=== PATIENT | female | born 1935 | race Caucasian/White ===

== ENCOUNTER 2020-02-15 16:35 | Inpatient (IN) ==
[2020-02-15] MEDS ORDERED: *HR* Warfarin 5 MG TABLET PO ONE ×2 (18:26→22:45)
[2020-02-15] MEDS: *HR* Amiodarone 200 MG TABLET PO SCH (22:41)
[2020-02-15] MEDS: OMEGA PO SCH (22:52)
[2020-02-15] MEDS: EPA PO SCH (22:52)
[2020-02-15] MEDS: FISH OIL PO SCH (22:52)
[2020-02-15] MEDS: DHA PO SCH (22:52)
[2020-02-15] MEDS: Cyanocobalamin (B-12) 1,000 MCG TABLET PO SCH (22:53)
[2020-02-15] MEDS: Gabapentin 300 MG CAPSULE PO SCH (22:54)
[2020-02-16 06:08] LABS: Basophils # 0.1 K/mcL (0.0-0.2); Basophils % 0.7 %; Eosinophils # 0.3 K/mcL (0.0-0.6); Eosinophils % 3.3 %; Hematocrit 30.6 % (35.3-44.9); Hemoglobin 8.9 g/dL (11.5-15.4); Immature Granulocytes % 0.4 % (0-4); Lymphocytes # 1.8 K/mcL (0.6-4.6); Lymphocytes % 24.3 %; Mean Corpuscular HGB Conc 29.1 g/dL (31.6-35.5); Mean Corpuscular Hemoglobin 22.7 pg (28.0-33.3); Mean Corpuscular Volume 78.1 fL (83.0-100.0); Mean Platelet Volume 9.2 fL (9.4-12.4); Monocytes # 0.6 K/mcL (0.0-1.3); Monocytes % 8.5 %; Neutrophils # 4.7 K/mcL (1.6-8.9); Platelet Count 443 K/mcL (140-400); Red Blood Count 3.92 M/mcL (3.82-4.97); Red Cell Distribution Width 25.4 % (11.5-14.5); Segmented Neutrophils % 62.8 %; White Blood Count 7.5 K/mcL (4.3-11.1)
[2020-02-16 06:32] LABS: INR 1.5
[2020-02-16 06:34] LABS: BUN/Creatinine Ratio 12 (6-26); Blood Urea Nitrogen 9 mg/dL (8-23); Calcium 8.7 mg/dL (8.6-10.3); Carbon Dioxide 30 mEq/L (23-29); Chloride 99 mEq/L (98-107); Glucose 93 mg/dL (70-105); Osmolality,Calculated 278 (280-300); Potassium 4.8 mEq/L (3.5-5.1); Sodium 135 mEq/L (136-145); eGFR For African Americans > 60 (> 60); eGFR For Non-African Americans > 60 (> 60)
[2020-02-16 06:55] LABS: Anisocytosis 1+ (Not Present)
[2020-02-16] MEDS ORDERED: *HR* Warfarin 7.5 MG TABLET PO SCH (09:00)
[2020-02-16] MEDS: amLODIPine 5 MG TABLET PO SCH (09:12)
[2020-02-16] MEDS: Gabapentin 300 MG CAPSULE PO SCH ×2 (09:12→21:05)
[2020-02-16] MEDS: Cyanocobalamin (B-12) 1,000 MCG TABLET PO SCH ×2 (09:12→21:04)
[2020-02-16] MEDS: Metoprolol XL (24 HR) Succ 25 MG TAB.ER.24H PO SCH (09:12)
[2020-02-16] MEDS: *HR* Amiodarone 200 MG TABLET PO SCH ×2 (09:12→21:05)
[2020-02-16] MEDS: EPA PO SCH ×2 (09:13→21:06)
[2020-02-16] MEDS: DHA PO SCH ×2 (09:13→21:06)
[2020-02-16] MEDS: FISH OIL PO SCH ×2 (09:13→21:06)
[2020-02-16] MEDS: OMEGA PO SCH ×2 (09:13→21:06)
[2020-02-16] MEDS: VIT A PO SCH (09:14)
[2020-02-16] MEDS: CUPRIC OXIDE PO SCH (09:14)
[2020-02-16] MEDS: E AC PO SCH (09:14)
[2020-02-16] MEDS: [UNRECOGNIZED DRUG - OTHER] PO SCH (09:14)
[2020-02-16] MEDS: ZNOX PO SCH (09:14)
[2020-02-16] MEDS: polyethylene glycoL 3350 17 GM POWD.PACK PO SCH (15:28)
[2020-02-16] MEDS ORDERED: Warfarin perPT PO PRN (18:00)
[2020-02-16] MEDS: Sennosides/Docusate Sodium TABLET PO SCH (21:04)
[2020-02-17 05:29] LABS: INR 1.9; Prothrombin Time 21.3 Seconds (9.4-12.1)
[2020-02-17] MEDS ORDERED: 0.9 % Sodium Chloride 500 ML IVC ONE (09:59)
[2020-02-17] MEDS: Cyanocobalamin (B-12) 1,000 MCG TABLET PO SCH ×2 (10:02→21:47)
[2020-02-17] MEDS: Gabapentin 300 MG CAPSULE PO SCH ×2 (10:03→21:46)
[2020-02-17] MEDS: Sennosides/Docusate Sodium TABLET PO SCH ×2 (10:03→21:46)
[2020-02-17] MEDS: amLODIPine 5 MG TABLET PO SCH (10:03)
[2020-02-17] MEDS: polyethylene glycoL 3350 17 GM POWD.PACK PO SCH (10:03)
[2020-02-17] MEDS: *HR* Amiodarone 200 MG TABLET PO SCH ×2 (10:03→21:47)
[2020-02-17] MEDS: Metoprolol XL (24 HR) Succ 25 MG TAB.ER.24H PO SCH (10:04)
[2020-02-17] MEDS: VIT A PO SCH (10:06)
[2020-02-17] MEDS: [UNRECOGNIZED DRUG - OTHER] PO SCH (10:06)
[2020-02-17] MEDS: ZNOX PO SCH (10:06)
[2020-02-17] MEDS: E AC PO SCH (10:06)
[2020-02-17] MEDS: CUPRIC OXIDE PO SCH (10:06)
[2020-02-17] MEDS: OMEGA PO SCH (10:07)
[2020-02-17] MEDS: DHA PO SCH (10:07)
[2020-02-17] MEDS: FISH OIL PO SCH (10:07)
[2020-02-17] MEDS: EPA PO SCH (10:07)
[2020-02-17] MEDS: 0.9 % Sodium Chloride 1,000 ML IVC SCH (17:19)
[2020-02-17] MEDS ORDERED: Warfarin 5 MG, Warfarin 2.5 MG PO ONE (18:00)
[2020-02-17] MEDS: *HR* HYDROcodone/Acet 10/325 mg TABLET PO PRN (21:47)
[2020-02-18] MEDS: FISH OIL PO SCH ×3 (01:29→22:12)
[2020-02-18] MEDS: EPA PO SCH ×3 (01:29→22:12)
[2020-02-18] MEDS: OMEGA PO SCH ×3 (01:29→22:12)
[2020-02-18] MEDS: DHA PO SCH ×3 (01:29→22:12)
[2020-02-18] MEDS: 0.9 % Sodium Chloride 1,000 ML IVC SCH ×3 (03:24→22:17)
[2020-02-18 05:52] LABS: INR 2.3; Prothrombin Time 26.4 Seconds (9.4-12.1)
[2020-02-18] MEDS: Metoprolol XL (24 HR) Succ 25 MG TAB.ER.24H PO SCH (09:01)
[2020-02-18] MEDS: Sennosides/Docusate Sodium TABLET PO SCH ×2 (09:01→22:10)
[2020-02-18] MEDS: polyethylene glycoL 3350 17 GM POWD.PACK PO SCH (09:01)
[2020-02-18] MEDS: Cyanocobalamin (B-12) 1,000 MCG TABLET PO SCH ×2 (09:01→22:10)
[2020-02-18] MEDS: Gabapentin 300 MG CAPSULE PO SCH ×2 (09:01→22:12)
[2020-02-18] MEDS: *HR* Amiodarone 200 MG TABLET PO SCH ×2 (09:01→22:10)
[2020-02-18] MEDS: VIT A PO SCH (09:02)
[2020-02-18] MEDS: E AC PO SCH (09:02)
[2020-02-18] MEDS: [UNRECOGNIZED DRUG - OTHER] PO SCH (09:02)
[2020-02-18] MEDS: ZNOX PO SCH (09:02)
[2020-02-18] MEDS: *HR* HYDROcodone/Acet 10/325 mg TABLET PO PRN ×2 (09:02→22:11)
[2020-02-18] MEDS: CUPRIC OXIDE PO SCH (09:02)
[2020-02-18] MEDS ORDERED: Bisacodyl 10 MG RECTAL SUPPOSITORY RC ONE (13:15)
[2020-02-18] MEDS ORDERED: *HR* Warfarin 5 MG TABLET PO ONE (18:00)
[2020-02-18] MEDS ORDERED: 0.9 % Sodium Chloride 1,000 ML IVC SCH (23:30)
[2020-02-19 07:34] LABS: Prothrombin Time 31.3 Seconds (9.4-12.1)
[2020-02-19 07:35] LABS: INR 2.8
[2020-02-19] MEDS ORDERED: Furosemide 20 MG/2 ML VIAL IVP ONE (08:57)
[2020-02-19] MEDS: Sennosides/Docusate Sodium TABLET PO SCH ×2 (09:28→20:23)
[2020-02-19] MEDS: Cyanocobalamin (B-12) 1,000 MCG TABLET PO SCH ×2 (09:29→20:21)
[2020-02-19] MEDS: Metoprolol XL (24 HR) Succ 25 MG TAB.ER.24H PO SCH (09:29)
[2020-02-19] MEDS: polyethylene glycoL 3350 17 GM POWD.PACK PO SCH (09:29)
[2020-02-19] MEDS: Gabapentin 300 MG CAPSULE PO SCH ×2 (09:29→20:23)
[2020-02-19] MEDS: *HR* Amiodarone 200 MG TABLET PO SCH ×2 (09:30→20:20)
[2020-02-19] MEDS: OMEGA PO SCH ×2 (09:32→20:25)
[2020-02-19] MEDS: VIT A PO SCH (09:32)
[2020-02-19] MEDS: CUPRIC OXIDE PO SCH (09:32)
[2020-02-19] MEDS: E AC PO SCH (09:32)
[2020-02-19] MEDS: DHA PO SCH ×2 (09:32→20:25)
[2020-02-19] MEDS: FISH OIL PO SCH ×2 (09:32→20:25)
[2020-02-19] MEDS: [UNRECOGNIZED DRUG - OTHER] PO SCH (09:32)
[2020-02-19] MEDS: EPA PO SCH ×2 (09:32→20:25)
[2020-02-19] MEDS: ZNOX PO SCH (09:32)
[2020-02-19 09:34] LABS: Basophils % 0.5 %; Eosinophils # 0.3 K/mcL (0.0-0.6); Eosinophils % 3.8 %; Hematocrit 29.7 % (35.3-44.9); Hemoglobin 8.6 g/dL (11.5-15.4); Immature Granulocytes % 0.4 % (0-4); Lymphocytes % 25.3 %; Mean Corpuscular Hemoglobin 22.9 pg (28.0-33.3); Mean Corpuscular Volume 79.2 fL (83.0-100.0); Mean Platelet Volume 8.8 fL (9.4-12.4); Monocytes # 0.7 K/mcL (0.0-1.3); Monocytes % 8.7 %; Neutrophils # 4.8 K/mcL (1.6-8.9); Platelet Count 475 K/mcL (140-400); Red Blood Count 3.75 M/mcL (3.82-4.97); Red Cell Distribution Width 25.1 % (11.5-14.5); Segmented Neutrophils % 61.3 %; White Blood Count 7.8 K/mcL (4.3-11.1)
[2020-02-19] MEDS: *HR* HYDROcodone/Acet 10/325 mg TABLET PO PRN ×2 (09:37→20:31)
[2020-02-19 09:48] LABS: BUN/Creatinine Ratio 10 (6-26); Blood Urea Nitrogen 9 mg/dL (8-23); Calcium 8.5 mg/dL (8.6-10.3); Carbon Dioxide 27 mEq/L (23-29); Chloride 102 mEq/L (98-107); Glucose 121 mg/dL (70-105); Osmolality,Calculated 282 (280-300); Potassium 4.6 mEq/L (3.5-5.1); Sodium 136 mEq/L (136-145); eGFR For African Americans > 60 (> 60); eGFR For Non-African Americans > 60 (> 60)
[2020-02-19] MEDS ORDERED: *HR* Warfarin 3 MG TABLET PO ONE (18:00)
[2020-02-20 08:27] LABS: INR 2.6; Prothrombin Time 29.3 Seconds (9.4-12.1)
[2020-02-20] MEDS: Sennosides/Docusate Sodium TABLET PO SCH ×2 (09:29→21:07)
[2020-02-20] MEDS: FISH OIL PO SCH ×2 (09:30→21:05)
[2020-02-20] MEDS: *HR* Amiodarone 200 MG TABLET PO SCH ×2 (09:30→21:07)
[2020-02-20] MEDS: Gabapentin 300 MG CAPSULE PO SCH ×2 (09:30→21:07)
[2020-02-20] MEDS: Metoprolol XL (24 HR) Succ 25 MG TAB.ER.24H PO SCH (09:30)
[2020-02-20] MEDS: Cyanocobalamin (B-12) 1,000 MCG TABLET PO SCH ×2 (09:30→21:06)
[2020-02-20] MEDS: OMEGA PO SCH ×2 (09:30→21:05)
[2020-02-20] MEDS: EPA PO SCH ×2 (09:30→21:05)
[2020-02-20] MEDS: DHA PO SCH ×2 (09:30→21:05)
[2020-02-20] MEDS: polyethylene glycoL 3350 17 GM POWD.PACK PO SCH (09:30)
[2020-02-20] MEDS: VIT A PO SCH (09:31)
[2020-02-20] MEDS: ZNOX PO SCH (09:31)
[2020-02-20] MEDS: E AC PO SCH (09:31)
[2020-02-20] MEDS: CUPRIC OXIDE PO SCH (09:31)
[2020-02-20] MEDS: [UNRECOGNIZED DRUG - OTHER] PO SCH (09:31)
[2020-02-20] MEDS ORDERED: *HR* Warfarin 3 MG TABLET PO ONE (18:00)
[2020-02-20] MEDS: *HR* HYDROcodone/Acet 10/325 mg TABLET PO PRN (21:06)
[2020-02-21 07:42] LABS: Hematocrit 27.1 % (35.3-44.9); Hemoglobin 8.1 g/dL (11.5-15.4); Mean Corpuscular HGB Conc 29.9 g/dL (31.6-35.5); Mean Corpuscular Hemoglobin 23.2 pg (28.0-33.3); Mean Corpuscular Volume 77.7 fL (83.0-100.0); Mean Platelet Volume 8.7 fL (9.4-12.4); Platelet Count 499 K/mcL (140-400); Red Blood Count 3.49 M/mcL (3.82-4.97); Red Cell Distribution Width 24.5 % (11.5-14.5); White Blood Count 7.6 K/mcL (4.3-11.1)
[2020-02-21 07:57] LABS: BUN/Creatinine Ratio 8 (6-26); Blood Urea Nitrogen 6 mg/dL (8-23); Calcium 8.4 mg/dL (8.6-10.3); Carbon Dioxide 30 mEq/L (23-29); Chloride 101 mEq/L (98-107); Glucose 87 mg/dL (70-105); Osmolality,Calculated 279 (280-300); Potassium 4.5 mEq/L (3.5-5.1); Sodium 136 mEq/L (136-145); eGFR For African Americans > 60 (> 60); eGFR For Non-African Americans > 60 (> 60)
[2020-02-21 08:55] LABS: Prothrombin Time 35.8 Seconds (9.4-12.1)
[2020-02-21] MEDS: polyethylene glycoL 3350 17 GM POWD.PACK PO SCH (08:55)
[2020-02-21] MEDS: Cyanocobalamin (B-12) 1,000 MCG TABLET PO SCH ×2 (08:55→21:51)
[2020-02-21] MEDS: *HR* Amiodarone 200 MG TABLET PO SCH ×2 (08:55→21:51)
[2020-02-21] MEDS: *HR* HYDROcodone/Acet 10/325 mg TABLET PO PRN ×2 (08:55→21:51)
[2020-02-21 08:56] LABS: INR 3.1
[2020-02-21] MEDS: Gabapentin 300 MG CAPSULE PO SCH ×2 (08:56→21:50)
[2020-02-21] MEDS: Metoprolol XL (24 HR) Succ 25 MG TAB.ER.24H PO SCH (08:56)
[2020-02-21] MEDS: OMEGA PO SCH ×2 (08:56→22:28)
[2020-02-21] MEDS: DHA PO SCH ×2 (08:56→22:28)
[2020-02-21] MEDS: CUPRIC OXIDE PO SCH (08:56)
[2020-02-21] MEDS: VIT A PO SCH (08:56)
[2020-02-21] MEDS: E AC PO SCH (08:56)
[2020-02-21] MEDS: FISH OIL PO SCH ×2 (08:56→22:28)
[2020-02-21] MEDS: [UNRECOGNIZED DRUG - OTHER] PO SCH (08:56)
[2020-02-21] MEDS: EPA PO SCH ×2 (08:56→22:28)
[2020-02-21] MEDS: ZNOX PO SCH (08:56)
[2020-02-21] MEDS: Sennosides/Docusate Sodium TABLET PO SCH ×2 (08:56→21:51)
[2020-02-21] MEDS ORDERED: *HR* Warfarin 1 MG TABLET PO ONE (18:00)
[2020-02-22 06:07] LABS: INR 2.8; Prothrombin Time 31.6 Seconds (9.4-12.1)
[2020-02-22] MEDS: Sennosides/Docusate Sodium TABLET PO SCH ×2 (09:25→20:43)
[2020-02-22] MEDS: Cyanocobalamin (B-12) 1,000 MCG TABLET PO SCH ×2 (09:25→20:44)
[2020-02-22] MEDS: Gabapentin 300 MG CAPSULE PO SCH ×2 (09:26→20:44)
[2020-02-22] MEDS: FISH OIL PO SCH ×2 (09:26→20:45)
[2020-02-22] MEDS: EPA PO SCH ×2 (09:26→20:45)
[2020-02-22] MEDS: CUPRIC OXIDE PO SCH (09:26)
[2020-02-22] MEDS: [UNRECOGNIZED DRUG - OTHER] PO SCH (09:26)
[2020-02-22] MEDS: ZNOX PO SCH (09:26)
[2020-02-22] MEDS: *HR* Amiodarone 200 MG TABLET PO SCH ×2 (09:26→20:44)
[2020-02-22] MEDS: DHA PO SCH ×2 (09:26→20:45)
[2020-02-22] MEDS: Metoprolol XL (24 HR) Succ 25 MG TAB.ER.24H PO SCH (09:26)
[2020-02-22] MEDS: VIT A PO SCH (09:26)
[2020-02-22] MEDS: OMEGA PO SCH ×2 (09:26→20:45)
[2020-02-22] MEDS: E AC PO SCH (09:26)
[2020-02-22] MEDS: polyethylene glycoL 3350 17 GM POWD.PACK PO SCH (09:26)
[2020-02-22] MEDS ORDERED: *HR* Warfarin 1 MG TABLET PO ONE (18:00)
[2020-02-23 06:47] LABS: INR 2.4; Prothrombin Time 27.7 Seconds (9.4-12.1)
[2020-02-23] MEDS: Metoprolol XL (24 HR) Succ 25 MG TAB.ER.24H PO SCH (08:23)
[2020-02-23] MEDS: *HR* Amiodarone 200 MG TABLET PO SCH ×2 (08:23→22:40)
[2020-02-23] MEDS: Gabapentin 300 MG CAPSULE PO SCH ×2 (08:24→22:41)
[2020-02-23] MEDS: Sennosides/Docusate Sodium TABLET PO SCH ×2 (08:24→22:40)
[2020-02-23] MEDS: Cyanocobalamin (B-12) 1,000 MCG TABLET PO SCH ×2 (08:24→22:41)
[2020-02-23] MEDS: ZNOX PO SCH (08:25)
[2020-02-23] MEDS: [UNRECOGNIZED DRUG - OTHER] PO SCH (08:25)
[2020-02-23] MEDS: DHA PO SCH ×2 (08:25→22:41)
[2020-02-23] MEDS: VIT A PO SCH (08:25)
[2020-02-23] MEDS: FISH OIL PO SCH ×2 (08:25→22:41)
[2020-02-23] MEDS: E AC PO SCH (08:25)
[2020-02-23] MEDS: EPA PO SCH ×2 (08:25→22:41)
[2020-02-23] MEDS: OMEGA PO SCH ×2 (08:25→22:41)
[2020-02-23] MEDS: CUPRIC OXIDE PO SCH (08:25)
[2020-02-23] MEDS ORDERED: Ondansetron ODT 4 MG TAB.RAPDIS SL STA (09:10)
[2020-02-23] MEDS ORDERED: Ondansetron ODT 4 MG TAB.RAPDIS SL PRN (09:11)
[2020-02-23] MEDS: polyethylene glycoL 3350 17 GM POWD.PACK PO SCH (16:17)
[2020-02-23] MEDS ORDERED: *HR* Warfarin 3 MG TABLET PO ONE (18:00)
[2020-02-23] MEDS: *HR* HYDROcodone/Acet 10/325 mg TABLET PO PRN (22:39)
[2020-02-24 06:42] LABS: INR 2.2; Prothrombin Time 25.1 Seconds (9.4-12.1)
[2020-02-24] MEDS: Gabapentin 300 MG CAPSULE PO SCH ×2 (08:53→21:04)
[2020-02-24] MEDS: Cyanocobalamin (B-12) 1,000 MCG TABLET PO SCH ×2 (08:54→21:04)
[2020-02-24] MEDS: *HR* Amiodarone 200 MG TABLET PO SCH ×2 (08:54→21:04)
[2020-02-24] MEDS: OMEGA PO SCH ×2 (08:56→21:04)
[2020-02-24] MEDS: VIT A PO SCH (08:56)
[2020-02-24] MEDS: FISH OIL PO SCH ×2 (08:56→21:04)
[2020-02-24] MEDS: E AC PO SCH (08:56)
[2020-02-24] MEDS: DHA PO SCH ×2 (08:56→21:04)
[2020-02-24] MEDS: ZNOX PO SCH (08:56)
[2020-02-24] MEDS: [UNRECOGNIZED DRUG - OTHER] PO SCH (08:56)
[2020-02-24] MEDS: Sennosides/Docusate Sodium TABLET PO SCH ×2 (08:56→20:56)
[2020-02-24] MEDS: polyethylene glycoL 3350 17 GM POWD.PACK PO SCH (08:56)
[2020-02-24] MEDS: EPA PO SCH ×2 (08:56→21:04)
[2020-02-24] MEDS: CUPRIC OXIDE PO SCH (08:56)
[2020-02-24] MEDS: Furosemide 20 MG TABLET PO PRN (08:57)
[2020-02-24] MEDS: Metoprolol XL (24 HR) Succ 25 MG TAB.ER.24H PO SCH (08:57)
[2020-02-24] MEDS ORDERED: *HR* Warfarin 5 MG TABLET PO ONE (18:00)
[2020-02-24] MEDS: *HR* HYDROcodone/Acet 10/325 mg TABLET PO PRN (21:03)
[2020-02-25 06:12] LABS: Prothrombin Time 22.9 Seconds (9.4-12.1)
[2020-02-25 06:13] LABS: Basophils % 0.4 %; Eosinophils # 0.4 K/mcL (0.0-0.6); Hematocrit 28.8 % (35.3-44.9); Hemoglobin 8.5 g/dL (11.5-15.4); Immature Granulocytes % 0.4 % (0-4); Lymphocytes # 1.7 K/mcL (0.6-4.6); Lymphocytes % 24.9 %; Mean Corpuscular HGB Conc 29.5 g/dL (31.6-35.5); Mean Corpuscular Hemoglobin 22.8 pg (28.0-33.3); Mean Corpuscular Volume 77.4 fL (83.0-100.0); Mean Platelet Volume 8.6 fL (9.4-12.4); Monocytes # 0.8 K/mcL (0.0-1.3); Neutrophils # 4.1 K/mcL (1.6-8.9); Platelet Count 480 K/mcL (140-400); Red Blood Count 3.72 M/mcL (3.82-4.97); Red Cell Distribution Width 24.1 % (11.5-14.5); Segmented Neutrophils % 58.3 %
[2020-02-25 06:31] LABS: BUN/Creatinine Ratio 10 (6-26); Blood Urea Nitrogen 8 mg/dL (8-23); Calcium 8.7 mg/dL (8.6-10.3); Carbon Dioxide 34 mEq/L (23-29); Chloride 101 mEq/L (98-107); Glucose 86 mg/dL (70-105); Osmolality,Calculated 288 (280-300); Potassium 4.1 mEq/L (3.5-5.1); Sodium 140 mEq/L (136-145); eGFR For African Americans > 60 (> 60); eGFR For Non-African Americans > 60 (> 60)
[2020-02-25 07:02] LABS: Anisocytosis 1+ (Not Present); Hypochromasia Present (Not Present); Microcytosis Present (Not Present); Platelet Estimate Normal (Normal)
[2020-02-25] MEDS: *HR* Amiodarone 200 MG TABLET PO SCH ×2 (09:53→21:35)
[2020-02-25] MEDS: Metoprolol XL (24 HR) Succ 25 MG TAB.ER.24H PO SCH (09:53)
[2020-02-25] MEDS: Gabapentin 300 MG CAPSULE PO SCH ×3 (09:53→21:33)
[2020-02-25] MEDS: Cyanocobalamin (B-12) 1,000 MCG TABLET PO SCH ×2 (09:54→21:34)
[2020-02-25] MEDS: ZNOX PO SCH (09:54)
[2020-02-25] MEDS: polyethylene glycoL 3350 17 GM POWD.PACK PO SCH (09:54)
[2020-02-25] MEDS: OMEGA PO SCH ×2 (09:54→21:31)
[2020-02-25] MEDS: EPA PO SCH ×2 (09:54→21:31)
[2020-02-25] MEDS: [UNRECOGNIZED DRUG - OTHER] PO SCH (09:54)
[2020-02-25] MEDS: CUPRIC OXIDE PO SCH (09:54)
[2020-02-25] MEDS: FISH OIL PO SCH ×2 (09:54→21:31)
[2020-02-25] MEDS: E AC PO SCH (09:54)
[2020-02-25] MEDS: DHA PO SCH ×2 (09:54→21:31)
[2020-02-25] MEDS: VIT A PO SCH (09:54)
[2020-02-25] MEDS: Sennosides/Docusate Sodium TABLET PO SCH ×2 (09:54→21:33)
[2020-02-25] MEDS ORDERED: *HR* Warfarin 5 MG TABLET PO ONE (18:00)
[2020-02-25] MEDS: *HR* HYDROcodone/Acet 10/325 mg TABLET PO PRN (21:33)
[2020-02-26 06:22] LABS: Prothrombin Time 22.7 Seconds (9.4-12.1)
[2020-02-26] MEDS: Cyanocobalamin (B-12) 1,000 MCG TABLET PO SCH ×2 (09:05→20:47)
[2020-02-26] MEDS: OMEGA PO SCH ×2 (09:06→20:48)
[2020-02-26] MEDS: E AC PO SCH (09:06)
[2020-02-26] MEDS: VIT A PO SCH (09:06)
[2020-02-26] MEDS: ZNOX PO SCH (09:06)
[2020-02-26] MEDS: Metoprolol XL (24 HR) Succ 25 MG TAB.ER.24H PO SCH (09:06)
[2020-02-26] MEDS: CUPRIC OXIDE PO SCH (09:06)
[2020-02-26] MEDS: EPA PO SCH ×2 (09:06→20:48)
[2020-02-26] MEDS: Gabapentin 300 MG CAPSULE PO SCH ×3 (09:06→20:44)
[2020-02-26] MEDS: [UNRECOGNIZED DRUG - OTHER] PO SCH (09:06)
[2020-02-26] MEDS: DHA PO SCH ×2 (09:06→20:48)
[2020-02-26] MEDS: FISH OIL PO SCH ×2 (09:06→20:48)
[2020-02-26] MEDS: Sennosides/Docusate Sodium TABLET PO SCH ×2 (09:06→20:47)
[2020-02-26] MEDS: polyethylene glycoL 3350 17 GM POWD.PACK PO SCH (09:06)
[2020-02-26] MEDS: *HR* Amiodarone 200 MG TABLET PO SCH ×2 (09:06→20:44)
[2020-02-26] MEDS ORDERED: *HR* Warfarin 5 MG TABLET PO ONE (18:00)
[2020-02-27] MEDS: polyethylene glycoL 3350 17 GM POWD.PACK PO SCH (08:55)
[2020-02-27] MEDS: Metoprolol XL (24 HR) Succ 25 MG TAB.ER.24H PO SCH (08:55)
[2020-02-27] MEDS: Cyanocobalamin (B-12) 1,000 MCG TABLET PO SCH ×2 (08:55→20:47)
[2020-02-27] MEDS: Gabapentin 300 MG CAPSULE PO SCH ×3 (08:55→20:48)
[2020-02-27] MEDS: Furosemide 20 MG TABLET PO PRN (08:56)
[2020-02-27] MEDS: *HR* Amiodarone 200 MG TABLET PO SCH ×2 (08:56→20:48)
[2020-02-27] MEDS: Sennosides/Docusate Sodium TABLET PO SCH ×2 (08:56→20:48)
[2020-02-27] MEDS: ZNOX PO SCH (08:57)
[2020-02-27] MEDS: [UNRECOGNIZED DRUG - OTHER] PO SCH (08:57)
[2020-02-27] MEDS: CUPRIC OXIDE PO SCH (08:57)
[2020-02-27] MEDS: VIT A PO SCH (08:57)
[2020-02-27] MEDS: DHA PO SCH ×2 (08:57→20:48)
[2020-02-27] MEDS: E AC PO SCH (08:57)
[2020-02-27] MEDS: EPA PO SCH ×2 (08:57→20:48)
[2020-02-27] MEDS: FISH OIL PO SCH ×2 (08:57→20:48)
[2020-02-27] MEDS: OMEGA PO SCH ×2 (08:57→20:48)
[2020-02-27 11:28] LABS: Prothrombin Time 23.3 Seconds (9.4-12.1)
[2020-02-27] MEDS ORDERED: *HR* Warfarin 5 MG TABLET PO ONE (18:00)
[2020-02-27] MEDS: Nystatin POWDER 30 GM BOTTLE TP SCH (20:47)
[2020-02-28 07:29] LABS: INR 2.2; Prothrombin Time 24.9 Seconds (9.4-12.1)
[2020-02-28] MEDS: Metoprolol XL (24 HR) Succ 25 MG TAB.ER.24H PO SCH (08:30)
[2020-02-28] MEDS: Sennosides/Docusate Sodium TABLET PO SCH ×2 (08:30→20:27)
[2020-02-28] MEDS: Cyanocobalamin (B-12) 1,000 MCG TABLET PO SCH ×2 (08:30→20:28)
[2020-02-28] MEDS: *HR* Amiodarone 200 MG TABLET PO SCH ×2 (08:30→20:28)
[2020-02-28] MEDS: polyethylene glycoL 3350 17 GM POWD.PACK PO SCH (08:31)
[2020-02-28] MEDS: Nystatin POWDER 30 GM BOTTLE TP SCH ×3 (08:31→20:31)
[2020-02-28] MEDS: ZNOX PO SCH (08:31)
[2020-02-28] MEDS: CUPRIC OXIDE PO SCH (08:31)
[2020-02-28] MEDS: VIT A PO SCH (08:31)
[2020-02-28] MEDS: Gabapentin 300 MG CAPSULE PO SCH ×3 (08:31→20:28)
[2020-02-28] MEDS: DHA PO SCH ×2 (08:31→20:31)
[2020-02-28] MEDS: E AC PO SCH (08:31)
[2020-02-28] MEDS: EPA PO SCH ×2 (08:31→20:31)
[2020-02-28] MEDS: [UNRECOGNIZED DRUG - OTHER] PO SCH (08:31)
[2020-02-28] MEDS: FISH OIL PO SCH ×2 (08:31→20:31)
[2020-02-28] MEDS: OMEGA PO SCH ×2 (08:31→20:31)
[2020-02-28] MEDS ORDERED: *HR* Warfarin 5 MG TABLET PO ONE (18:00)
[2020-02-29 07:19] LABS: Basophils # 0.1 K/mcL (0.0-0.2); Basophils % 0.8 %; Eosinophils # 0.4 K/mcL (0.0-0.6); Eosinophils % 5.6 %; Hematocrit 30.6 % (35.3-44.9); Hemoglobin 9.1 g/dL (11.5-15.4); Immature Granulocytes % 0.3 % (0-4); Lymphocytes # 1.8 K/mcL (0.6-4.6); Mean Corpuscular HGB Conc 29.7 g/dL (31.6-35.5); Mean Corpuscular Hemoglobin 22.8 pg (28.0-33.3); Mean Corpuscular Volume 76.5 fL (83.0-100.0); Mean Platelet Volume 8.8 fL (9.4-12.4); Monocytes # 0.7 K/mcL (0.0-1.3); Neutrophils # 3.6 K/mcL (1.6-8.9); Platelet Count 441 K/mcL (140-400); Red Cell Distribution Width 23.6 % (11.5-14.5); Segmented Neutrophils % 54.3 %; White Blood Count 6.6 K/mcL (4.3-11.1)
[2020-02-29 07:31] LABS: INR 2.1; Prothrombin Time 23.6 Seconds (9.4-12.1)
[2020-02-29 07:45] LABS: BUN/Creatinine Ratio 14 (6-26); Blood Urea Nitrogen 11 mg/dL (8-23); Calcium 9.1 mg/dL (8.6-10.3); Carbon Dioxide 31 mEq/L (23-29); Chloride 99 mEq/L (98-107); Glucose 108 mg/dL (70-105); Osmolality,Calculated 280 (280-300); Potassium 4.1 mEq/L (3.5-5.1); Sodium 135 mEq/L (136-145); eGFR For African Americans > 60 (> 60); eGFR For Non-African Americans > 60 (> 60)
[2020-02-29] MEDS: *HR* Amiodarone 200 MG TABLET PO SCH ×2 (08:28→22:01)
[2020-02-29] MEDS: polyethylene glycoL 3350 17 GM POWD.PACK PO SCH (08:28)
[2020-02-29] MEDS: Cyanocobalamin (B-12) 1,000 MCG TABLET PO SCH ×2 (08:28→22:01)
[2020-02-29] MEDS: Sennosides/Docusate Sodium TABLET PO SCH ×2 (08:28→22:01)
[2020-02-29] MEDS: Metoprolol XL (24 HR) Succ 25 MG TAB.ER.24H PO SCH (08:28)
[2020-02-29] MEDS: Gabapentin 300 MG CAPSULE PO SCH ×3 (08:29→22:01)
[2020-02-29] MEDS: VIT A PO SCH (08:29)
[2020-02-29] MEDS: FISH OIL PO SCH ×2 (08:29→22:08)
[2020-02-29] MEDS: EPA PO SCH ×2 (08:29→22:08)
[2020-02-29] MEDS: Nystatin POWDER 30 GM BOTTLE TP SCH ×3 (08:29→22:08)
[2020-02-29] MEDS: OMEGA PO SCH ×2 (08:29→22:08)
[2020-02-29] MEDS: DHA PO SCH ×2 (08:29→22:08)
[2020-02-29] MEDS: ZNOX PO SCH (08:29)
[2020-02-29] MEDS: CUPRIC OXIDE PO SCH (08:29)
[2020-02-29] MEDS: E AC PO SCH (08:29)
[2020-02-29] MEDS: [UNRECOGNIZED DRUG - OTHER] PO SCH (08:29)
[2020-02-29] MEDS ORDERED: *HR* Warfarin 5 MG TABLET PO ONE (18:00)
[2020-03-01 08:05] LABS: INR 2.2
[2020-03-01] MEDS: Metoprolol XL (24 HR) Succ 25 MG TAB.ER.24H PO SCH (09:38)
[2020-03-01] MEDS: Sennosides/Docusate Sodium TABLET PO SCH ×2 (09:38→22:08)
[2020-03-01] MEDS: Cyanocobalamin (B-12) 1,000 MCG TABLET PO SCH ×2 (09:38→22:08)
[2020-03-01] MEDS: Gabapentin 300 MG CAPSULE PO SCH ×3 (09:38→22:08)
[2020-03-01] MEDS: *HR* Amiodarone 200 MG TABLET PO SCH ×2 (09:38→22:08)
[2020-03-01] MEDS: polyethylene glycoL 3350 17 GM POWD.PACK PO SCH (09:39)
[2020-03-01] MEDS: [UNRECOGNIZED DRUG - OTHER] PO SCH (09:39)
[2020-03-01] MEDS: E AC PO SCH (09:39)
[2020-03-01] MEDS: DHA PO SCH ×2 (09:39→22:09)
[2020-03-01] MEDS: FISH OIL PO SCH ×2 (09:39→22:09)
[2020-03-01] MEDS: VIT A PO SCH (09:39)
[2020-03-01] MEDS: EPA PO SCH ×2 (09:39→22:09)
[2020-03-01] MEDS: OMEGA PO SCH ×2 (09:39→22:09)
[2020-03-01] MEDS: Nystatin POWDER 30 GM BOTTLE TP SCH ×3 (09:39→22:09)
[2020-03-01] MEDS: ZNOX PO SCH (09:39)
[2020-03-01] MEDS: CUPRIC OXIDE PO SCH (09:39)
[2020-03-01] MEDS ORDERED: *HR* Warfarin 5 MG TABLET PO ONE (18:00)
[2020-03-02] MEDS: Gabapentin 300 MG CAPSULE PO SCH ×3 (10:05→21:33)
[2020-03-02] MEDS: Cyanocobalamin (B-12) 1,000 MCG TABLET PO SCH ×2 (10:05→21:33)
[2020-03-02] MEDS: Sennosides/Docusate Sodium TABLET PO SCH ×2 (10:06→21:33)
[2020-03-02] MEDS: E AC PO SCH (10:06)
[2020-03-02] MEDS: VIT A PO SCH (10:06)
[2020-03-02] MEDS: Metoprolol XL (24 HR) Succ 25 MG TAB.ER.24H PO SCH (10:06)
[2020-03-02] MEDS: Nystatin POWDER 30 GM BOTTLE TP SCH ×3 (10:06→21:34)
[2020-03-02] MEDS: CUPRIC OXIDE PO SCH (10:06)
[2020-03-02] MEDS: DHA PO SCH (10:06)
[2020-03-02] MEDS: ZNOX PO SCH (10:06)
[2020-03-02] MEDS: OMEGA PO SCH (10:06)
[2020-03-02] MEDS: EPA PO SCH (10:06)
[2020-03-02] MEDS: FISH OIL PO SCH (10:06)
[2020-03-02] MEDS: [UNRECOGNIZED DRUG - OTHER] PO SCH (10:06)
[2020-03-02] MEDS: polyethylene glycoL 3350 17 GM POWD.PACK PO SCH (10:07)
[2020-03-02] MEDS: *HR* Amiodarone 200 MG TABLET PO SCH ×2 (10:07→21:33)
[2020-03-02] MEDS: *HR* Warfarin 5 MG TABLET PO SCH (16:57)
[2020-03-03] MEDS: DHA PO SCH ×3 (05:19→21:31)
[2020-03-03] MEDS: EPA PO SCH ×3 (05:19→21:31)
[2020-03-03] MEDS: OMEGA PO SCH ×3 (05:19→21:31)
[2020-03-03] MEDS: FISH OIL PO SCH ×3 (05:19→21:31)
[2020-03-03] MEDS: *HR* Amiodarone 200 MG TABLET PO SCH ×2 (08:38→21:17)
[2020-03-03] MEDS: Sennosides/Docusate Sodium TABLET PO SCH ×2 (08:38→21:17)
[2020-03-03] MEDS: Metoprolol XL (24 HR) Succ 25 MG TAB.ER.24H PO SCH (08:38)
[2020-03-03] MEDS: Gabapentin 300 MG CAPSULE PO SCH ×3 (08:38→21:16)
[2020-03-03] MEDS: Cyanocobalamin (B-12) 1,000 MCG TABLET PO SCH ×2 (08:38→21:17)
[2020-03-03] MEDS: Nystatin POWDER 30 GM BOTTLE TP SCH ×3 (08:39→21:31)
[2020-03-03] MEDS: VIT A PO SCH (08:39)
[2020-03-03] MEDS: ZNOX PO SCH (08:39)
[2020-03-03] MEDS: CUPRIC OXIDE PO SCH (08:39)
[2020-03-03] MEDS: Megestrol Acetate 400 MG/10 ML UDC PO SCH (08:39)
[2020-03-03] MEDS: polyethylene glycoL 3350 17 GM POWD.PACK PO SCH (08:39)
[2020-03-03] MEDS: [UNRECOGNIZED DRUG - OTHER] PO SCH (08:39)
[2020-03-03] MEDS: E AC PO SCH (08:39)
[2020-03-03 12:58] LABS: INR 2.1; Prothrombin Time 24.4 Seconds (9.4-12.1)
[2020-03-03] MEDS: *HR* Warfarin 5 MG TABLET PO SCH (16:49)
[2020-03-04] MEDS: Gabapentin 300 MG CAPSULE PO SCH ×3 (08:14→20:30)
[2020-03-04] MEDS: Cyanocobalamin (B-12) 1,000 MCG TABLET PO SCH ×2 (08:14→20:29)
[2020-03-04] MEDS: Metoprolol XL (24 HR) Succ 25 MG TAB.ER.24H PO SCH (08:14)
[2020-03-04] MEDS: Sennosides/Docusate Sodium TABLET PO SCH ×2 (08:14→20:34)
[2020-03-04] MEDS: *HR* Amiodarone 200 MG TABLET PO SCH ×2 (08:14→20:30)
[2020-03-04] MEDS: Megestrol Acetate 400 MG/10 ML UDC PO SCH (08:15)
[2020-03-04] MEDS: polyethylene glycoL 3350 17 GM POWD.PACK PO SCH (08:15)
[2020-03-04] MEDS: CUPRIC OXIDE PO SCH (08:16)
[2020-03-04] MEDS: FISH OIL PO SCH ×2 (08:16→20:28)
[2020-03-04] MEDS: E AC PO SCH (08:16)
[2020-03-04] MEDS: VIT A PO SCH (08:16)
[2020-03-04] MEDS: OMEGA PO SCH ×2 (08:16→20:28)
[2020-03-04] MEDS: [UNRECOGNIZED DRUG - OTHER] PO SCH (08:16)
[2020-03-04] MEDS: EPA PO SCH ×2 (08:16→20:28)
[2020-03-04] MEDS: DHA PO SCH ×2 (08:16→20:28)
[2020-03-04] MEDS: ZNOX PO SCH (08:16)
[2020-03-04] MEDS: Nystatin POWDER 30 GM BOTTLE TP SCH ×3 (08:19→20:34)
[2020-03-04] MEDS: *HR* Warfarin 5 MG TABLET PO SCH (17:08)
[2020-03-05] MEDS: Sennosides/Docusate Sodium TABLET PO SCH ×2 (08:28→20:36)
[2020-03-05] MEDS: Cyanocobalamin (B-12) 1,000 MCG TABLET PO SCH ×2 (08:28→20:35)
[2020-03-05] MEDS: Gabapentin 300 MG CAPSULE PO SCH ×3 (08:28→20:35)
[2020-03-05] MEDS: *HR* Amiodarone 200 MG TABLET PO SCH ×2 (08:28→20:35)
[2020-03-05] MEDS: Metoprolol XL (24 HR) Succ 25 MG TAB.ER.24H PO SCH (08:28)
[2020-03-05] MEDS: polyethylene glycoL 3350 17 GM POWD.PACK PO SCH (08:28)
[2020-03-05] MEDS: Megestrol Acetate 400 MG/10 ML UDC PO SCH (08:29)
[2020-03-05] MEDS: VIT A PO SCH (08:37)
[2020-03-05] MEDS: [UNRECOGNIZED DRUG - OTHER] PO SCH (08:37)
[2020-03-05] MEDS: EPA PO SCH ×2 (08:37→20:36)
[2020-03-05] MEDS: ZNOX PO SCH (08:37)
[2020-03-05] MEDS: E AC PO SCH (08:37)
[2020-03-05] MEDS: DHA PO SCH ×2 (08:37→20:36)
[2020-03-05] MEDS: OMEGA PO SCH ×2 (08:37→20:36)
[2020-03-05] MEDS: CUPRIC OXIDE PO SCH (08:37)
[2020-03-05] MEDS: FISH OIL PO SCH ×2 (08:37→20:36)
[2020-03-05] MEDS: *HR* Warfarin 5 MG TABLET PO SCH (16:25)
[2020-03-05] MEDS: Nystatin POWDER 30 GM BOTTLE TP SCH ×3 (16:26→20:36)
[2020-03-06 06:53] LABS: Basophils # 0.1 K/mcL (0.0-0.2); Basophils % 0.6 %; Eosinophils # 0.6 K/mcL (0.0-0.6); Eosinophils % 6.5 %; Hematocrit 27.8 % (35.3-44.9); Hemoglobin 8.5 g/dL (11.5-15.4); Immature Granulocytes % 0.4 % (0-4); Lymphocytes # 3.1 K/mcL (0.6-4.6); Lymphocytes % 36.6 %; Mean Corpuscular HGB Conc 30.6 g/dL (31.6-35.5); Mean Corpuscular Hemoglobin 23.1 pg (28.0-33.3); Mean Corpuscular Volume 75.5 fL (83.0-100.0); Mean Platelet Volume 8.6 fL (9.4-12.4); Monocytes % 11.5 %; Neutrophils # 3.8 K/mcL (1.6-8.9); Platelet Count 373 K/mcL (140-400); Red Blood Count 3.68 M/mcL (3.82-4.97); Red Cell Distribution Width 23.4 % (11.5-14.5); Segmented Neutrophils % 44.4 %; White Blood Count 8.4 K/mcL (4.3-11.1)
[2020-03-06 07:05] LABS: INR 2.1
[2020-03-06 07:13] LABS: Alanine Aminotransferase 8 Units/L (7-52); Albumin 2.8 g/dL (3.5-5.7); Alkaline Phosphatase 51 Units/L (34-104); Aspartate Amino Transferase 10 Units/L (13-39); BUN/Creatinine Ratio 18 (6-26); Bilirubin,Total 0.3 mg/dL (0.3-1.0); Blood Urea Nitrogen 14 mg/dL (8-23); Calcium 8.6 mg/dL (8.6-10.3); Carbon Dioxide 25 mEq/L (23-29); Chloride 106 mEq/L (98-107); Globulin 2.9 g/dL (2.4-3.5); Glucose 90 mg/dL (70-105); Osmolality,Calculated 284 (280-300); Potassium 4.3 mEq/L (3.5-5.1); Sodium 137 mEq/L (136-145); Total Protein 5.7 g/dL (6.4-8.9); eGFR For African Americans > 60 (> 60); eGFR For Non-African Americans > 60 (> 60)
[2020-03-06] MEDS: Sennosides/Docusate Sodium TABLET PO SCH ×2 (08:39→21:05)
[2020-03-06] MEDS: polyethylene glycoL 3350 17 GM POWD.PACK PO SCH (08:39)
[2020-03-06] MEDS: Gabapentin 300 MG CAPSULE PO SCH ×3 (08:39→21:05)
[2020-03-06] MEDS: Cyanocobalamin (B-12) 1,000 MCG TABLET PO SCH ×2 (08:39→21:03)
[2020-03-06 08:40] LABS: Anisocytosis 2+ (Not Present); Hypochromasia Present (Not Present); Microcytosis Present (Not Present); Platelet Estimate Normal (Normal); Toxic Granulation Present (Not Present)
[2020-03-06] MEDS: OMEGA PO SCH ×2 (08:40→21:05)
[2020-03-06] MEDS: CUPRIC OXIDE PO SCH (08:40)
[2020-03-06] MEDS: DHA PO SCH ×2 (08:40→21:05)
[2020-03-06] MEDS: FISH OIL PO SCH ×2 (08:40→21:05)
[2020-03-06] MEDS: ZNOX PO SCH (08:40)
[2020-03-06] MEDS: VIT A PO SCH (08:40)
[2020-03-06] MEDS: E AC PO SCH (08:40)
[2020-03-06] MEDS: Nystatin POWDER 30 GM BOTTLE TP SCH ×3 (08:40→21:05)
[2020-03-06] MEDS: EPA PO SCH ×2 (08:40→21:05)
[2020-03-06] MEDS: [UNRECOGNIZED DRUG - OTHER] PO SCH (08:40)
[2020-03-06] MEDS: *HR* Amiodarone 200 MG TABLET PO SCH ×2 (08:46→21:05)
[2020-03-06] MEDS: Metoprolol XL (24 HR) Succ 25 MG TAB.ER.24H PO SCH (08:47)
[2020-03-06] MEDS: Megestrol Acetate 400 MG/10 ML UDC PO SCH (08:47)
[2020-03-06] MEDS ORDERED: Bisacodyl 10 MG RECTAL SUPPOSITORY RC PRN (10:20)
[2020-03-06] MEDS: *HR* Warfarin 5 MG TABLET PO SCH (16:43)
[2020-03-07] MEDS: Megestrol Acetate 400 MG/10 ML UDC PO SCH (08:46)
[2020-03-07] MEDS: Cyanocobalamin (B-12) 1,000 MCG TABLET PO SCH ×2 (08:47→20:44)
[2020-03-07] MEDS: Sennosides/Docusate Sodium TABLET PO SCH ×2 (08:47→20:45)
[2020-03-07] MEDS: Gabapentin 300 MG CAPSULE PO SCH ×3 (08:47→20:45)
[2020-03-07] MEDS: polyethylene glycoL 3350 17 GM POWD.PACK PO SCH (08:48)
[2020-03-07] MEDS: Nystatin POWDER 30 GM BOTTLE TP SCH ×3 (08:48→20:46)
[2020-03-07] MEDS: Metoprolol XL (24 HR) Succ 25 MG TAB.ER.24H PO SCH (08:48)
[2020-03-07] MEDS: *HR* Amiodarone 200 MG TABLET PO SCH ×2 (08:48→20:45)
[2020-03-07] MEDS: ZNOX PO SCH (08:49)
[2020-03-07] MEDS: VIT A PO SCH (08:49)
[2020-03-07] MEDS: EPA PO SCH ×2 (08:49→20:45)
[2020-03-07] MEDS: [UNRECOGNIZED DRUG - OTHER] PO SCH (08:49)
[2020-03-07] MEDS: CUPRIC OXIDE PO SCH (08:49)
[2020-03-07] MEDS: FISH OIL PO SCH ×2 (08:49→20:45)
[2020-03-07] MEDS: E AC PO SCH (08:49)
[2020-03-07] MEDS: DHA PO SCH ×2 (08:49→20:45)
[2020-03-07] MEDS: OMEGA PO SCH ×2 (08:49→20:45)
[2020-03-07] MEDS: *HR* Warfarin 5 MG TABLET PO SCH (17:41)
[2020-03-08 06:45] LABS: Hematocrit 27.5 % (35.3-44.9); Hemoglobin 8.5 g/dL (11.5-15.4); Mean Corpuscular HGB Conc 30.9 g/dL (31.6-35.5); Mean Corpuscular Hemoglobin 23.2 pg (28.0-33.3); Mean Corpuscular Volume 75.1 fL (83.0-100.0); Mean Platelet Volume 8.6 fL (9.4-12.4); Platelet Count 386 K/mcL (140-400); Red Blood Count 3.66 M/mcL (3.82-4.97); Red Cell Distribution Width 23.4 % (11.5-14.5); White Blood Count 8.2 K/mcL (4.3-11.1)
[2020-03-08] MEDS: Metoprolol XL (24 HR) Succ 25 MG TAB.ER.24H PO SCH (08:03)
[2020-03-08] MEDS: Sennosides/Docusate Sodium TABLET PO SCH ×2 (08:03→19:59)
[2020-03-08] MEDS: *HR* Amiodarone 200 MG TABLET PO SCH ×2 (08:03→20:00)
[2020-03-08] MEDS: Gabapentin 300 MG CAPSULE PO SCH ×3 (08:04→20:00)
[2020-03-08] MEDS: EPA PO SCH ×2 (08:04→19:59)
[2020-03-08] MEDS: OMEGA PO SCH ×2 (08:04→19:59)
[2020-03-08] MEDS: Cyanocobalamin (B-12) 1,000 MCG TABLET PO SCH ×2 (08:04→20:01)
[2020-03-08] MEDS: polyethylene glycoL 3350 17 GM POWD.PACK PO SCH (08:04)
[2020-03-08] MEDS: CUPRIC OXIDE PO SCH (08:04)
[2020-03-08] MEDS: ZNOX PO SCH (08:04)
[2020-03-08] MEDS: E AC PO SCH (08:04)
[2020-03-08] MEDS: DHA PO SCH ×2 (08:04→19:59)
[2020-03-08] MEDS: VIT A PO SCH (08:04)
[2020-03-08] MEDS: FISH OIL PO SCH ×2 (08:04→19:59)
[2020-03-08] MEDS: [UNRECOGNIZED DRUG - OTHER] PO SCH (08:04)
[2020-03-08] MEDS: Megestrol Acetate 400 MG/10 ML UDC PO SCH (08:04)
[2020-03-08] MEDS: Nystatin POWDER 30 GM BOTTLE TP SCH ×3 (08:04→20:05)
[2020-03-08] MEDS: Acetaminophen 325 MG TABLET PO PRN (15:31)
[2020-03-08] MEDS: *HR* Warfarin 5 MG TABLET PO SCH (16:30)
[2020-03-09 07:27] LABS: INR 2.6; Prothrombin Time 29.3 Seconds (9.4-12.1)
[2020-03-09] MEDS: Metoprolol XL (24 HR) Succ 25 MG TAB.ER.24H PO SCH (07:51)
[2020-03-09] MEDS: *HR* Amiodarone 200 MG TABLET PO SCH ×2 (07:51→21:00)
[2020-03-09] MEDS: Cyanocobalamin (B-12) 1,000 MCG TABLET PO SCH ×2 (07:51→21:00)
[2020-03-09] MEDS: Nystatin POWDER 30 GM BOTTLE TP SCH ×2 (07:52→21:00)
[2020-03-09] MEDS: Sennosides/Docusate Sodium TABLET PO SCH ×2 (07:52→21:00)
[2020-03-09] MEDS: E AC PO SCH (07:52)
[2020-03-09] MEDS: FISH OIL PO SCH ×2 (07:52→21:01)
[2020-03-09] MEDS: CUPRIC OXIDE PO SCH (07:52)
[2020-03-09] MEDS: EPA PO SCH ×2 (07:52→21:01)
[2020-03-09] MEDS: Megestrol Acetate 400 MG/10 ML UDC PO SCH (07:52)
[2020-03-09] MEDS: ZNOX PO SCH (07:52)
[2020-03-09] MEDS: polyethylene glycoL 3350 17 GM POWD.PACK PO SCH (07:52)
[2020-03-09] MEDS: [UNRECOGNIZED DRUG - OTHER] PO SCH (07:52)
[2020-03-09] MEDS: Gabapentin 300 MG CAPSULE PO SCH ×3 (07:52→21:00)
[2020-03-09] MEDS: VIT A PO SCH (07:52)
[2020-03-09] MEDS: OMEGA PO SCH ×2 (07:52→21:01)
[2020-03-09] MEDS: DHA PO SCH ×2 (07:52→21:01)
[2020-03-09] MEDS: Acetaminophen 325 MG TABLET PO PRN (07:56)
[2020-03-09] MEDS: *HR* Warfarin 5 MG TABLET PO SCH (16:22)
[2020-03-10 07:10] LABS: Prothrombin Time 32.5 Seconds (9.4-12.1)
[2020-03-10 07:11] LABS: INR 2.9
[2020-03-10] MEDS: CUPRIC OXIDE PO SCH (09:21)
[2020-03-10] MEDS: EPA PO SCH ×2 (09:21→20:23)
[2020-03-10] MEDS: ZNOX PO SCH (09:21)
[2020-03-10] MEDS: FISH OIL PO SCH ×2 (09:21→20:23)
[2020-03-10] MEDS: VIT A PO SCH (09:21)
[2020-03-10] MEDS: E AC PO SCH (09:21)
[2020-03-10] MEDS: OMEGA PO SCH ×2 (09:21→20:23)
[2020-03-10] MEDS: DHA PO SCH ×2 (09:21→20:23)
[2020-03-10] MEDS: [UNRECOGNIZED DRUG - OTHER] PO SCH (09:21)
[2020-03-10] MEDS: *HR* Amiodarone 200 MG TABLET PO SCH (10:19)
[2020-03-10] MEDS: Cyanocobalamin (B-12) 1,000 MCG TABLET PO SCH ×2 (10:20→20:21)
[2020-03-10] MEDS: Metoprolol XL (24 HR) Succ 25 MG TAB.ER.24H PO SCH (10:20)
[2020-03-10] MEDS: Gabapentin 300 MG CAPSULE PO SCH ×3 (10:21→20:22)
[2020-03-10] MEDS: Megestrol Acetate 400 MG/10 ML UDC PO SCH (10:21)
[2020-03-10] MEDS: Sennosides/Docusate Sodium TABLET PO SCH ×2 (10:22→20:22)
[2020-03-10] MEDS: polyethylene glycoL 3350 17 GM POWD.PACK PO SCH (10:22)
[2020-03-10] MEDS: Nystatin POWDER 30 GM BOTTLE TP SCH ×3 (10:23→20:23)
[2020-03-11 08:02] VITALS: BP 130/46
[2020-03-11] MEDS: Sennosides/Docusate Sodium TABLET PO SCH (08:15)
[2020-03-11] MEDS: Cyanocobalamin (B-12) 1,000 MCG TABLET PO SCH (08:15)
[2020-03-11] MEDS: ZNOX PO SCH (08:16)
[2020-03-11] MEDS: FISH OIL PO SCH (08:16)
[2020-03-11] MEDS: EPA PO SCH (08:16)
[2020-03-11] MEDS: [UNRECOGNIZED DRUG - OTHER] PO SCH (08:16)
[2020-03-11] MEDS: VIT A PO SCH (08:16)
[2020-03-11] MEDS: OMEGA PO SCH (08:16)
[2020-03-11] MEDS: E AC PO SCH (08:16)
[2020-03-11] MEDS: Megestrol Acetate 400 MG/10 ML UDC PO SCH (08:16)
[2020-03-11] MEDS: Gabapentin 300 MG CAPSULE PO SCH (08:16)
[2020-03-11] MEDS: CUPRIC OXIDE PO SCH (08:16)
[2020-03-11] MEDS: DHA PO SCH (08:16)
[2020-03-11] MEDS: Nystatin POWDER 30 GM BOTTLE TP SCH (08:17)
[2020-03-11] MEDS: polyethylene glycoL 3350 17 GM POWD.PACK PO SCH (08:17)
[2020-03-11 08:19] LABS: INR 2.6; Prothrombin Time 29.4 Seconds (9.4-12.1)
[2020-03-11] MEDS ORDERED: *HR* Warfarin 2 MG TABLET PO ONE (18:00)
== END 2020-03-11 13:43 | disposition home health service (06) | DRG 949 ==
LOC: INPPIK 18:04
PROVIDERS: ADMIT Family Medicine; ATTEND Family Medicine

== ENCOUNTER 2020-03-23 15:03 | Inpatient (IN) ==
[2020-03-24] MEDS ORDERED: *HR* OxyCODONE Immed Rel 5 MG TABLET PO PRN (16:19)
[2020-03-24] MEDS ORDERED: Cefdinir 300 MG CAPSULE PO SCH (21:00)
[2020-03-24] MEDS: Gabapentin 300 MG CAPSULE PO SCH (21:23)
[2020-03-24] MEDS: Apixaban 5 MG TABLET PO SCH (21:23)
[2020-03-24] MEDS: *HR* Amiodarone 200 MG TABLET PO SCH (21:23)
[2020-03-24] MEDS: Doxycycline 100 MG CAPSULE PO SCH (21:23)
[2020-03-24] MEDS: *HR* OxyCODONE Immed Rel 5 MG TABLET PO PRN (21:24)
[2020-03-25] MEDS: *HR* OxyCODONE Immed Rel 5 MG TABLET PO PRN ×2 (05:29→21:23)
[2020-03-25 07:30] LABS: Basophils # 0.1 K/mcL (0.0-0.2); Basophils % 0.8 %; Eosinophils # 0.3 K/mcL (0.0-0.6); Eosinophils % 4.8 %; Hematocrit 30.5 % (35.3-44.9); Hemoglobin 9.3 g/dL (11.5-15.4); Immature Granulocytes % 0.5 % (0-4); Lymphocytes # 2.8 K/mcL (0.6-4.6); Mean Corpuscular HGB Conc 30.5 g/dL (31.6-35.5); Mean Corpuscular Hemoglobin 25.4 pg (28.0-33.3); Mean Corpuscular Volume 83.3 fL (83.0-100.0); Mean Platelet Volume 9.2 fL (9.4-12.4); Monocytes # 0.8 K/mcL (0.0-1.3); Neutrophils # 2.7 K/mcL (1.6-8.9); Platelet Count 273 K/mcL (140-400); Red Blood Count 3.66 M/mcL (3.82-4.97); Red Cell Distribution Width 29.2 % (11.5-14.5); Segmented Neutrophils % 39.9 %; White Blood Count 6.7 K/mcL (4.3-11.1)
[2020-03-25 08:52] LABS: Anisocytosis 2+ (Not Present)
[2020-03-25] MEDS: amLODIPine 5 MG TABLET PO SCH (09:38)
[2020-03-25] MEDS: Metoprolol XL (24 HR) Succ 25 MG TAB.ER.24H PO SCH (09:38)
[2020-03-25] MEDS: Doxycycline 100 MG CAPSULE PO SCH ×2 (09:38→21:23)
[2020-03-25] MEDS: Apixaban 5 MG TABLET PO SCH ×2 (09:38→21:23)
[2020-03-25] MEDS: Gabapentin 300 MG CAPSULE PO SCH ×2 (09:38→21:24)
[2020-03-25] MEDS: *HR* Amiodarone 200 MG TABLET PO SCH ×2 (09:38→21:24)
[2020-03-25 12:56] LABS: BUN/Creatinine Ratio 19 (6-26); Blood Urea Nitrogen 16 mg/dL (8-23); Calcium 8.5 mg/dL (8.6-10.3); Carbon Dioxide 25 mEq/L (23-29); Chloride 107 mEq/L (98-107); Glucose 90 mg/dL (70-105); Osmolality,Calculated 283 (280-300); Potassium 4.6 mEq/L (3.5-5.1); Sodium 136 mEq/L (136-145); eGFR For African Americans > 60 (> 60); eGFR For Non-African Americans > 60 (> 60)
[2020-03-26] MEDS: Gabapentin 300 MG CAPSULE PO SCH ×2 (09:42→20:35)
[2020-03-26] MEDS: amLODIPine 5 MG TABLET PO SCH (09:42)
[2020-03-26] MEDS: *HR* Amiodarone 200 MG TABLET PO SCH ×2 (09:42→20:35)
[2020-03-26] MEDS: *HR* OxyCODONE Immed Rel 5 MG TABLET PO PRN ×2 (09:42→17:35)
[2020-03-26] MEDS: Doxycycline 100 MG CAPSULE PO SCH ×2 (09:42→20:35)
[2020-03-26] MEDS: Apixaban 5 MG TABLET PO SCH ×2 (09:43→20:35)
[2020-03-26] MEDS: Metoprolol XL (24 HR) Succ 25 MG TAB.ER.24H PO SCH (09:43)
[2020-03-27] MEDS: *HR* OxyCODONE Immed Rel 5 MG TABLET PO PRN ×2 (01:43→08:07)
[2020-03-27] MEDS: amLODIPine 5 MG TABLET PO SCH (09:35)
[2020-03-27] MEDS: Sennosides/Docusate Sodium TABLET PO SCH ×2 (09:35→21:59)
[2020-03-27] MEDS: Gabapentin 300 MG CAPSULE PO SCH ×2 (09:35→21:59)
[2020-03-27] MEDS: Doxycycline 100 MG CAPSULE PO SCH ×2 (09:35→22:00)
[2020-03-27] MEDS: Metoprolol XL (24 HR) Succ 25 MG TAB.ER.24H PO SCH (09:36)
[2020-03-27] MEDS: *HR* Amiodarone 200 MG TABLET PO SCH ×2 (09:37→21:59)
[2020-03-27] MEDS: Apixaban 5 MG TABLET PO SCH ×2 (09:37→21:59)
[2020-03-28] MEDS: *HR* OxyCODONE Immed Rel 5 MG TABLET PO PRN ×2 (03:52→14:31)
[2020-03-28 08:22] LABS: Hematocrit 29.9 % (35.3-44.9); Hemoglobin 9.2 g/dL (11.5-15.4); Mean Corpuscular HGB Conc 30.8 g/dL (31.6-35.5); Mean Corpuscular Hemoglobin 26.1 pg (28.0-33.3); Mean Corpuscular Volume 84.7 fL (83.0-100.0); Platelet Count 261 K/mcL (140-400); Red Blood Count 3.53 M/mcL (3.82-4.97); Red Cell Distribution Width 28.7 % (11.5-14.5); White Blood Count 8.5 K/mcL (4.3-11.1)
[2020-03-28 08:46] LABS: BUN/Creatinine Ratio 25 (6-26); Blood Urea Nitrogen 20 mg/dL (8-23); Calcium 8.7 mg/dL (8.6-10.3); Carbon Dioxide 25 mEq/L (23-29); Chloride 105 mEq/L (98-107); Glucose 91 mg/dL (70-105); Osmolality,Calculated 282 (280-300); Potassium 4.3 mEq/L (3.5-5.1); Sodium 135 mEq/L (136-145); eGFR For African Americans > 60 (> 60); eGFR For Non-African Americans > 60 (> 60)
[2020-03-28] MEDS: Doxycycline 100 MG CAPSULE PO SCH ×2 (10:01→20:33)
[2020-03-28] MEDS: Metoprolol XL (24 HR) Succ 25 MG TAB.ER.24H PO SCH (10:01)
[2020-03-28] MEDS: *HR* Amiodarone 200 MG TABLET PO SCH ×2 (10:01→20:32)
[2020-03-28] MEDS: Apixaban 5 MG TABLET PO SCH ×2 (10:02→20:33)
[2020-03-28] MEDS: Gabapentin 300 MG CAPSULE PO SCH ×2 (10:02→20:32)
[2020-03-28] MEDS: amLODIPine 5 MG TABLET PO SCH (10:02)
[2020-03-28] MEDS: Sennosides/Docusate Sodium TABLET PO SCH ×2 (10:02→20:32)
[2020-03-28 13:00] LABS: Bilirubin,Urine Negative (Negative); Blood,Urine Negative (Negative); Clarity,Urine Clear (Clear); Color,Urine Yellow (Yellow); Glucose,Urine (UA) Normal (Normal); Ketones,Urine Negative (Negative); Leukocyte Esterase,Urine Negative (Negative); Nitrite,Urine Negative (Negative); Protein,Urine Negative (Neg-Trace); Specific Gravity,Urine >= 1.030 (1.010-1.025); Urobilinogen,Urine Normal (Normal)
[2020-03-29] MEDS: Gabapentin 300 MG CAPSULE PO SCH ×2 (09:17→20:24)
[2020-03-29] MEDS: *HR* Amiodarone 200 MG TABLET PO SCH ×2 (09:17→20:24)
[2020-03-29] MEDS: Apixaban 5 MG TABLET PO SCH ×2 (09:17→20:24)
[2020-03-29] MEDS: Doxycycline 100 MG CAPSULE PO SCH ×2 (09:17→20:24)
[2020-03-29] MEDS: Sennosides/Docusate Sodium TABLET PO SCH ×2 (09:17→20:24)
[2020-03-29] MEDS: Metoprolol XL (24 HR) Succ 25 MG TAB.ER.24H PO SCH (09:17)
[2020-03-29] MEDS: amLODIPine 5 MG TABLET PO SCH (09:17)
[2020-03-29] MEDS: Acetaminophen 325 MG TABLET PO PRN (22:24)
[2020-03-30] MEDS: Sennosides/Docusate Sodium TABLET PO SCH ×2 (08:43→20:23)
[2020-03-30] MEDS: Doxycycline 100 MG CAPSULE PO SCH ×2 (08:43→20:22)
[2020-03-30] MEDS: Metoprolol XL (24 HR) Succ 25 MG TAB.ER.24H PO SCH (08:43)
[2020-03-30] MEDS: amLODIPine 5 MG TABLET PO SCH (08:43)
[2020-03-30] MEDS: Apixaban 5 MG TABLET PO SCH ×2 (08:43→20:23)
[2020-03-30] MEDS: Gabapentin 300 MG CAPSULE PO SCH ×2 (08:43→20:23)
[2020-03-30] MEDS: *HR* Amiodarone 200 MG TABLET PO SCH ×2 (08:43→20:22)
[2020-03-30] MEDS: Methyl Salicylate/Menthol 57 APPL/57 GM TUBE TP PRN (14:09)
[2020-03-30] MEDS: Acetaminophen 325 MG TABLET PO PRN (14:09)
[2020-03-31] MEDS: amLODIPine 5 MG TABLET PO SCH (10:06)
[2020-03-31] MEDS: Doxycycline 100 MG CAPSULE PO SCH ×2 (10:06→21:59)
[2020-03-31] MEDS: Gabapentin 300 MG CAPSULE PO SCH ×2 (10:06→21:59)
[2020-03-31] MEDS: Sennosides/Docusate Sodium TABLET PO SCH ×2 (10:06→21:59)
[2020-03-31] MEDS: Apixaban 5 MG TABLET PO SCH ×2 (10:06→21:59)
[2020-03-31] MEDS: *HR* Amiodarone 200 MG TABLET PO SCH ×2 (10:06→21:59)
[2020-03-31] MEDS: Methyl Salicylate/Menthol 57 APPL/57 GM TUBE TP PRN (10:06)
[2020-03-31] MEDS: Metoprolol XL (24 HR) Succ 25 MG TAB.ER.24H PO SCH (10:07)
[2020-04-01] MEDS: amLODIPine 5 MG TABLET PO SCH (09:36)
[2020-04-01] MEDS: Gabapentin 300 MG CAPSULE PO SCH ×2 (09:36→21:12)
[2020-04-01] MEDS: Sennosides/Docusate Sodium TABLET PO SCH ×2 (09:36→21:12)
[2020-04-01] MEDS: Doxycycline 100 MG CAPSULE PO SCH ×2 (09:36→21:12)
[2020-04-01] MEDS: Metoprolol XL (24 HR) Succ 25 MG TAB.ER.24H PO SCH (09:36)
[2020-04-01] MEDS: Apixaban 5 MG TABLET PO SCH ×2 (09:36→21:12)
[2020-04-01] MEDS: *HR* Amiodarone 200 MG TABLET PO SCH ×2 (09:36→21:12)
[2020-04-02] MEDS: Metoprolol XL (24 HR) Succ 25 MG TAB.ER.24H PO SCH (08:52)
[2020-04-02] MEDS: Apixaban 5 MG TABLET PO SCH ×2 (08:52→20:39)
[2020-04-02] MEDS: amLODIPine 5 MG TABLET PO SCH (08:53)
[2020-04-02] MEDS: *HR* Amiodarone 200 MG TABLET PO SCH ×2 (08:53→20:39)
[2020-04-02] MEDS: Sennosides/Docusate Sodium TABLET PO SCH ×2 (08:53→20:38)
[2020-04-02] MEDS: Doxycycline 100 MG CAPSULE PO SCH (08:53)
[2020-04-02] MEDS: Gabapentin 300 MG CAPSULE PO SCH ×2 (08:53→20:39)
[2020-04-02] MEDS: Acetaminophen 325 MG TABLET PO PRN (20:38)
[2020-04-03 07:58] LABS: Basophils # 0.1 K/mcL (0.0-0.2); Basophils % 0.9 %; Eosinophils # 0.2 K/mcL (0.0-0.6); Hematocrit 35.4 % (35.3-44.9); Immature Granulocytes % 0.5 % (0-4); Lymphocytes # 2.3 K/mcL (0.6-4.6); Lymphocytes % 30.6 %; Mean Corpuscular HGB Conc 31.1 g/dL (31.6-35.5); Mean Corpuscular Hemoglobin 26.6 pg (28.0-33.3); Mean Corpuscular Volume 85.5 fL (83.0-100.0); Mean Platelet Volume 8.9 fL (9.4-12.4); Monocytes # 0.6 K/mcL (0.0-1.3); Monocytes % 7.8 %; Neutrophils # 4.2 K/mcL (1.6-8.9); Platelet Count 506 K/mcL (140-400); Red Blood Count 4.14 M/mcL (3.82-4.97); Red Cell Distribution Width 27.5 % (11.5-14.5); Segmented Neutrophils % 57.2 %; White Blood Count 7.4 K/mcL (4.3-11.1)
[2020-04-03 08:12] LABS: BUN/Creatinine Ratio 22 (6-26); Blood Urea Nitrogen 18 mg/dL (8-23); Carbon Dioxide 26 mEq/L (23-29); Chloride 106 mEq/L (98-107); Glucose 110 mg/dL (70-105); Osmolality,Calculated 289 (280-300); Sodium 138 mEq/L (136-145); eGFR For African Americans > 60 (> 60); eGFR For Non-African Americans > 60 (> 60)
[2020-04-03] MEDS: Gabapentin 300 MG CAPSULE PO SCH ×2 (08:28→22:32)
[2020-04-03] MEDS: Sennosides/Docusate Sodium TABLET PO SCH ×2 (08:28→22:32)
[2020-04-03] MEDS: Metoprolol XL (24 HR) Succ 25 MG TAB.ER.24H PO SCH (08:28)
[2020-04-03] MEDS: *HR* Amiodarone 200 MG TABLET PO SCH ×2 (08:28→22:33)
[2020-04-03] MEDS: amLODIPine 5 MG TABLET PO SCH (08:28)
[2020-04-03] MEDS: Apixaban 5 MG TABLET PO SCH ×2 (08:28→22:34)
[2020-04-03 09:02] LABS: Anisocytosis 2+ (Not Present)
[2020-04-03 10:51] LABS: Bilirubin,Urine Negative (Negative); Blood,Urine Negative (Negative); Clarity,Urine Clear (Clear); Color,Urine Yellow (Yellow); Glucose,Urine (UA) Normal (Normal); Ketones,Urine Negative (Negative); Leukocyte Esterase,Urine Negative (Negative); Nitrite,Urine Negative (Negative); Protein,Urine Negative (Neg-Trace); Specific Gravity,Urine >= 1.030 (1.010-1.025); Urobilinogen,Urine Normal (Normal)
[2020-04-04] MEDS: Acetaminophen 325 MG TABLET PO PRN (07:50)
[2020-04-04] MEDS: Metoprolol XL (24 HR) Succ 25 MG TAB.ER.24H PO SCH (07:50)
[2020-04-04] MEDS: amLODIPine 5 MG TABLET PO SCH (07:50)
[2020-04-04] MEDS: Apixaban 5 MG TABLET PO SCH ×2 (07:51→19:56)
[2020-04-04] MEDS: Gabapentin 300 MG CAPSULE PO SCH ×2 (07:51→19:56)
[2020-04-04] MEDS: *HR* Amiodarone 200 MG TABLET PO SCH ×2 (07:52→19:56)
[2020-04-04] MEDS: Sennosides/Docusate Sodium TABLET PO SCH ×2 (10:59→19:56)
[2020-04-05] MEDS: Acetaminophen 325 MG TABLET PO PRN (06:46)
[2020-04-05] MEDS: *HR* Amiodarone 200 MG TABLET PO SCH ×2 (09:18→19:58)
[2020-04-05] MEDS: Sennosides/Docusate Sodium TABLET PO SCH ×2 (09:18→19:58)
[2020-04-05] MEDS: Apixaban 5 MG TABLET PO SCH ×2 (09:18→19:58)
[2020-04-05] MEDS: Gabapentin 300 MG CAPSULE PO SCH ×2 (09:18→19:58)
[2020-04-05] MEDS: Metoprolol XL (24 HR) Succ 25 MG TAB.ER.24H PO SCH (09:18)
[2020-04-05] MEDS: amLODIPine 5 MG TABLET PO SCH (09:18)
[2020-04-06 07:15] VITALS: BP 133/70
[2020-04-06] MEDS: Gabapentin 300 MG CAPSULE PO SCH (08:30)
[2020-04-06] MEDS: Apixaban 5 MG TABLET PO SCH (08:30)
[2020-04-06] MEDS: Sennosides/Docusate Sodium TABLET PO SCH (08:30)
[2020-04-06] MEDS: amLODIPine 5 MG TABLET PO SCH (08:30)
[2020-04-06] MEDS: Metoprolol XL (24 HR) Succ 25 MG TAB.ER.24H PO SCH (08:30)
[2020-04-06] MEDS: *HR* Amiodarone 200 MG TABLET PO SCH (08:30)
== END 2020-04-06 13:05 | disposition home health service (06) | DRG 560 ==
LOC: INPPIK 03-24 11:36
PROVIDERS: ADMIT Family Medicine; ATTEND Family Medicine